=== PATIENT | female | born 1965 | race Caucasian/White ===

== ENCOUNTER → 2019-01-06 15:00 | Outpatient (CLI) | payer OTHER, SELFPAY ==
--- NOTE | 2019-01-06 15:05 | BI_ITS ---
MAMMOGRAPHY - BILATERAL SCREENING REASON FOR EXAM: Female, 53 years old. Routine annual screening examination. PERTINENT HISTORY: Non-contributory. TECHNIQUE: Digital bilateral breast mike (3D mammographic acquisition) in the CC and MLO projections. 2-D mediolateral oblique (MLO) and craniocaudad (CC) views of both breasts were obtained. CAD: Full Field Digital Mammography with Computer Added Detection was performed. COMPARISON: Comparison is made with prior outside examination dated April 15, 2017. FINDINGS: Breast Composition: The breasts are extremely dense, which lowers the sensitivity of mammography. There are no dominant masses or suspicious calcifications. No other significant abnormalities are identified. There has been no significant change since the prior study. BI/SCREEN MAMM (CAD) W/MIKE BILAT IMPRESSION: Stable bilateral screening mammogram. Yearly follow-up mammogram recommended. (A) ASSESSMENT CATEGORY: BIRADS Category 1: Negative. A letter regarding these results will be sent to the patient by the facility within 30 days. Approximately 10% of breast cancers are not detected by mammography. A normal mammogram should not delay biopsy of a clinically suspicious abnormality. [id number] Electronically Signed: Greyson Lewis, at 9:11 EDT , Service support ,
== END ==
PROVIDERS: Family Provider Family Medicine; PCP Family Medicine; Referring Provider Family Medicine; Visit Provider Family Medicine
DX: Z12.31 Encounter for screening mammogram for malignant neoplasm of breast (principal)
CPT/HCPCS: 77063; 77067

== ENCOUNTER → 2020-05-11 13:11 | Outpatient (CLI) | payer OTHER, SELFPAY ==
--- NOTE | 2020-05-11 13:14 | BI_ITS ---
MAMMOGRAPHY - BILATERAL SCREENING REASON FOR EXAM: Female, 54 years old. Routine annual screening examination. PERTINENT HISTORY: Non-contributory. TECHNIQUE: Digital bilateral breast mike (3D mammographic acquisition) in the CC and MLO projections. 2-D mediolateral oblique (MLO) and craniocaudad (CC) views of both breasts were obtained. CAD: Full Field Digital Mammography with Computer Added Detection was performed. COMPARISON: Comparison is made with prior study dated 01/06/2019. FINDINGS: Breast Composition: The breasts are extremely dense, which lowers the sensitivity of mammography. There are no dominant masses or suspicious calcifications. No other significant abnormalities are identified. There has been no significant change since the prior study. BI/SCREEN MAMM (CAD) W/MIKE BILAT IMPRESSION: Stable bilateral screening mammogram. Yearly follow-up mammogram recommended. (A) ASSESSMENT CATEGORY: BIRADS Category 1: Negative. A letter regarding these results will be sent to the patient by the facility within 30 days. Approximately 10% of breast cancers are not detected by mammography. A normal mammogram should not delay biopsy of a clinically suspicious abnormality. [id number] Electronically Signed: Greyson Lewis, at 14:23 EST , Service support ,
== END ==
PROVIDERS: PCP Family Medicine; Referring Provider Family Medicine; Visit Provider Family Medicine
DX: Z12.31 Encounter for screening mammogram for malignant neoplasm of breast (principal)
CPT/HCPCS: 77063; 77067

== ENCOUNTER 2023-03-11 09:01 | Day surgery (SDC) | payer OTHER, SELFPAY ==
[2023-03-11] VITALS (9 sets, daily range): BP systolic 85–119; BP diastolic 51–80; PULSE 71–98; RESP 16–20; TEMP 36.2–37.3; O2SAT 93–100; BMI 27.6
--- NOTE | 2023-03-11 | COLBX_PTH ---
PATIENT: MARIN ESQUIVEL LOC: EN U#:[id number] AGE/SX: 57/F ROOM: RE03/11/[address]: Dr. Zandra Toledo MD : 1965 BED: DIS: 03/11/2023 SPEC #: [id number] RECD: 03/11/23 10:03 STATUS: BRIGETTE BHARATH #: [id number] SUNDAR: 03/11/23 00:[address]: Zandra Toledo DEPT: SURGICAL PATHOLOGY RECD BY: Shaye Alejo ENTERED: 03/11/23 10:48 SP TYPE: COLON BX OTHR DR: EVANS Coe Tissues: A - Rectum, NOS B - Rectum, NOS C - Rectum, NOS Procedures: Frozen Section (charge) Surgery Specimen Level IV HEADER OPERATION: Colonoscopy with biopsy PRE-OP DIAGNOSIS: Rectal bleeding, inguinal lymphadenopathy TISSUE SUBMITTED: A - Rectal biopsy, frozen section, B - Rectal biopsy, C - Transverse polyp biopsy FROZEN SECTION DIAGNOSIS A. Rectal bleeding: Non-small cell carcinoma, favor squamous cell carcinoma. SJ:austen 03/11/2023 Case has been reviewed in consultation with Dr. Do who concurs with the above diagnosis. IDC:AM MICROSCOPIC DIAGNOSIS A. Rectal biopsy: Nonkeratinizing squamous cell carcinoma. B. Rectal biopsy: Nonkeratinizing squamous cell carcinoma. See comment. C. Transverse colon polyp, biopsy: A fragment of colonic mucosa, no pathologic diagnosis. SJ:austen 03/12/2023 COMMENT B. Immunohistochemistry ([id number]) supports the above diagnosis. Case has been reviewed in consultation with Dr. Do who concurs with the above diagnosis. IDC:AM MICROSCOPIC DESCRIPTION Slides are reviewed. GROSS DESCRIPTION A - Received fresh for frozen section diagnosis labeled with the patient's name is a specimen designated rectal biopsy. The specimen consists of a piece of leal soft tissue measuring 0.3 x 0.2 x 0.1 cm. This piece is submitted for frozen section diagnosis. Also present in the container are two minute fragments of leal soft tissue each measuring 0.1 cm in greatest dimension. The entire specimen is submitted in one cassette including the piece submitted for frozen section diagnosis in one cassette. B - Received in fixative is one container labeled with the patient's name and designated rectal biopsy. The specimen consists of multiple irregular fragments of light leal soft tissue that in aggregate measure 1.5 x 0.5 x 0.1 cm. The specimen is totally submitted in one cassette. C - Received in fixative is one container labeled with the patient's name and designated transverse polyp biopsy. The specimen consists of one irregular fragment of light leal soft tissue that measures 0.4 x 0.2 x 0.1 cm. The specimen is totally submitted in one cassette. / SJ:austen 03/11/2023 TC:0 CPT: 62869 x3, 23236
--- NOTE | 2023-03-11 | IMM_PTH ---
PATIENT: MARIN ESQUIVEL LOC: EN U#:[id number] AGE/SX: 57/F ROOM: RE03/11/[address]: Dr. Zandra Toledo MD : 1965 BED: DIS: 03/11/2023 SPEC #: [id number] RECD: 03/12/23 11:41 STATUS: BRIGETTE REQ #: [id number] SUNDAR: 03/11/23 00:[address]: Zandra Toledo DEPT: IMMUNOHISTOCHEMISTRY RECD BY: Shaye Alejo ENTERED: 03/12/23 11:43 SP TYPE: IMMUNO OTHR DR: EVANS Coe Tissues: B - Rectum, NOS Procedures: MSH2 (add) MLH-1 (add) MSH6 (add) Anti-PMS2 (add) CK20 (add) CK5-6 (add) CK7 (add) CK8 (add) KI-67 (add) P16 (add) P53 (add) Pankeratin (initial) P40 (add) PHYSICIAN & [address] [address] SPECIMEN INFORMATION: Tissue Source: B - Rectal biopsy Clinical Info: Rectal bleeding, inguinal lymphadenopathy Specimen Number: [id number] CPT code: 71364, 37108 x12 METHODOLOGY: Deparaffinized sections of prefer/formalin-fixed tissue or PAP/DQ stained slides are incubated with monoclonal/polyclonal antibodies/oligonucleotide probes. Localization is made via biotin free immunoperoxidase method. Appropriate controls are performed and reacted as expected. Results on target cell population are indicated in the following table: RESULTS: ANTIBODY / CLONE RESULT Block B AE1-3 (AE1/AE3/PCK26) positive CK7 (OV-TL12/30) positive, focal CK8 ([id number]) negative CK20 (KS20.8) negative CK5-6 (D5 & 1684) positive P40 (BC28) positive MLH-1 (M1) positive MSH2 (25D12) positive MSH6 (44) positive PMS2 (QJX6057) positive P16 (E6H4) positive, block staining Ki-67 (30-9) positive, high P53 (DO-7) negative, null pattern These tests were developed and their performance characteristics determined by [facility]. They may not have been cleared or approved by the U.S. Food and Drug Administration. The FDA has determined that such clearance or approval is not necessary. The above immunohistochemical/dualISH markers are ordered and reviewed by the Pathologist. INTERPRETATION: B. Rectal biopsy: Squamous cell carcinoma. Result of Microsatellite Instability Study: Negative (no loss of mismatch protein; no microsatellite instability detected). SJ:austen 03/13/2023
--- NOTE | 2023-03-11 09:12 | H&P.OPEN ---
HPI - General General Date of Service: 03/11/23 HPI Narrative MARIN ESQUIVEL, is a 57 F who presents for diagnostic colonoscopy due to bright red blood per rectum. Patient had a recent ultrasound the right groin on 03/06/2023 noticed at 3 cm lymph node which was palpable at PCPs desk ultrasound was done. Question neoplastic versus infectious per ultrasound report. Patient still has been having blood per rectum with every bowel movement. Patient started on omeprazole about 1 to 2 months ago and symptoms are still controlled medication. office visit 01/24/23 HPI HPI: 57-year-old female presents due to bright red/dark red blood per rectum for about the last 3 months. States more recently occurs more often with every bowel movement which she has about every 1 to 2 days. Patient does have known hemorrhoids and she has not use any medication for her hemorrhoids. Patient states she occasionally had some clots denies any black stools. Patient had a colonoscopy when she was 42 which was negative per patient. Patient did start having some reflux symptoms and discharged on omeprazole 20 mg p.o. daily last week and her symptoms are fairly well controlled with that currently. Patient's paternal grandmother did have colon cancer at age 50 about. Patient does not know a lot about her biological father's medical history. [facility] Medical History (Updated 03/11/23 @ 09:[address] Zandra Toledo MD) Back pain Easy bruising Gastric reflux High cholesterol History of GI bleed Leg cramps Low iron Non-smoker Post-menopausal Psoriasis Rectal bleeding Sinus headache Tinnitus Wears glasses Home Medications omeprazole 10 mg capsule,delayed release 20 mg PO DAILY 01/24/23 [History Last Taken Unknown] amoxicillin 875 mg-potassium clavulanate 125 mg tablet 1 tab PO Q12H 03/08/23 [History Last Taken Unknown] Allergy/AdvReac Type Severity Reaction Status Date / Time Sulfa (Sulfonamide Allergy Intermediate Hives Verified 03/08/23 08:24 Antibiotics) Milk Containing Products AdvReac Intermediate Other Verified 03/08/23 08:25 (Dairy) pseudoephedrine AdvReac Intermediate Other Verified 03/08/23 08:43 [From [facility]] Surgical History (Updated 03/08/23 @ 08:39 by Lacie Avila) History of laparoscopic appendectomy History of tonsillectomy and adenoidectomy Hx of colonoscopy Hx of laparoscopy Hx of left inguinal hernia repair Hx of oophorectomy Social History (Updated 01/24/23 @ 09:29 by Chelsea Knutson) Smoking Status: Never smoker second hand exposure: Yes alcohol intake: never diet: lactose free seatbelt use: always do you feel safe at home: Yes Past Medical/Surgical History Planned Operation Planned Operative Procedure/s: CSCOPE Previous Hospitalizations/Surgeries HX Hospitalizations: No Any Problems With Anesthesia: No You/Your Family Experience Fever (Hyperthermia) With Anes: No Cholinesterase deficiency: No Cardiovascular Hx Hypertension: No Respiratory Hx Sleep Apnea: No Hx Respiratory Tract Infection/Cold (presently): No (ON ANTIBIOTIC FOR SWOLLEN GROIN LYMPH NODE) Do You Snore Loudly (louder than talking or can be heard): Yes Do You Often Feel Tired/ Fatigued/ Sleepy Dring Daytime?: No Has Anyone Observed You Stop Breathing During Sleep?: No Result (for STOP score): Negative Smoking Status: Never smoker Neurological Does patient have nerve stimulator: No Reproduction : No Allergies Sulfa (Sulfonamide Antibiotics) Allergy (Intermediate, Verified 03/08/23 08:24) Hives Milk Containing Products (Dairy) Adverse Reaction (Intermediate, Verified 03/08/23 08:25) Other SINUS HEADACHES,STOMACH PAIN pseudoephedrine [From Sudafed] Adverse Reaction (Intermediate, Verified 03/08/23 08:43) Other TACHYCARDIA Discharge Is Pt Admitted From a Shelter, or a [facility]ci: No After D/C, Where Do you Plan to Go: Return Home Physical Exam Const alert, oriented x3 and no apparent distress HEENT normocephalic and head/scalp atraumatic Lymph Lymphatic Narrative: Tender palpable right groin lymphadenopathy-- largest about 3 cm Resp normal respiratory effort Cardio regular rate GI soft to palpation and non-tender; Negative for non-distended Palpation: Negative for guarding Extremity no clubbing, cyanosis or edema Neuro CN's II-XII intact bilaterally Psych mental status grossly normal Assessment & Plan Assessment/Plan (1) Rectal bleeding: (2) Lymphadenopathy, inguinal: Surgery Risks - Colonoscopy I discussed with the patient the risks of the procedure: Yes Risks Include but are not Limited To: Risks include but are not limited to: Bleeding, perforation requiring further surgery, inability to complete colonoscopy requiring barium enema.
[2023-03-11] MEDS: Lactated Ringers 1,000 ML 15 ML IV (09:31)
--- NOTE | 2023-03-11 10:03 | CT_ITS ---
STUDY: CT CHEST, ABDOMEN T PELVIS WITH CONTRAST REASON FOR EXAM: Female, 57 years old. Rectal mass likely cancer. Bright red blood per rectum. RADIATION DOSAGE (If Supplied By Facility): CTDIvol = ( 15.59 ) mGy, DLP = ( 1233.02 ) mGycm TECHNIQUE: Transaxial imaging was performed following intravenous administration of Oral and amp; IV Gastrografin and amp; 100mL Isovue-300. Individualized dose optimization techniques were used for this CT. COMPARISON: No relevant priors. FINDINGS: CHEST Mild scarring at the lung apices. Mild increased markings at the right lung base suggestive of mild linear scarring. There is no demonstrated pleural abnormality. Normal heart and pericardium. No coronary artery calcification is seen. Normal mediastinum. Normal hilar regions. Normal unenhanced pulmonary arteries. Normal aorta arch and descending thoracic aorta. Normal osseous structures. ABDOMEN There is decreased attenuation of the liver consistent with steatosis. There is a 2.8 cm by 2.7 cm cyst in the dome of the right lobe of the liver anteriorly. There is a small solitary gallstone. Normal spleen. Normal pancreas. Normal bilateral adrenal glands. Normal right kidney. Normal left kidney. There is a small hiatal hernia. Normal small intestine. Large rectal mass more prominent along the right lateral wall and posterior monzon of the rectum. Narrowing of the rectal lumen. Scattered sigmoid diverticula. Small lymph nodes are seen in the perirectal fat. Lymph nodes are also seen in the mesentery along the superior aspect of the sigmoid colon. Mucosal thickening of the sigmoid colon. The patient is status post appendectomy. There is scattered atherosclerotic calcification of the abdominal aorta, without a demonstrated aneurysm. Normal inferior vena cava. Normal retroperitoneum. Normal abdominal wall. Normal osseous structures. PELVIS Normal urinary bladder. Normal visualized pelvic arteries. CT/CT Chest, Abd, Pel w/Contrast IMPRESSION: Large rectal mass with narrowing of the rectal lumen as described. Lymph nodes are seen within the perirectal fat as well as in the mesentery surrounding the sigmoid colon. Fatty infiltration of the liver. Cyst is seen in the right lobe of the liver. Small solitary gallstone. Electronically Signed: Greyson Lewis MD at 14:20 EDT ,
--- NOTE | 2023-03-11 10:11 | OP.CCLET_ITS ---
03/11/2023 Brenna Jonathon Re : Colonoscopy procedure for Tamar Holt This procedure was performed on Saturday, March 11, 2023. My impressions and recommendations are as follows: Impressions : - Rectal mass 0 to 1 cm from the anal verge. - One less than 5 mm polyp in the transverse colon, removed with a cold biopsy forceps. Resected and retrieved. - Likely malignant partially obstructing tumor in the rectum. Biopsied. - The examination was otherwise normal. Recommendations : - Discharge patient to home. - Resume previous diet. - Continue present medications. - Await pathology results. - Perform a CT scan (computed tomography) of chest with contrast, abdomen with contrast and pelvis with contrast today. - Check liver enzymes (AST, ALT, alkaline phosphatase, bilirubin), hemogram with white blood cell count and platelets, electrolyte panel and CEA today. - Repeat colonoscopy is recommended. The colonoscopy date will be determined after pathology results from today's exam become available for review. My findings are described in the full procedure note, which is enclosed. If I can be of further assistance, please feel free to contact me at Doctor phone number(s): , Work: . Sincerely, MD Zandra Skaggs MD 03/11/2023 10:10:51 AM This report has been signed electronically.
--- NOTE | 2023-03-11 10:11 | OP.COLON_ITS ---
Patient Name: Tamar Lizama Procedure Date: 03/11/2023 9:35 AM Date of : 1965 Age: 57 Procedure: Colonoscopy Indications: Rectal bleeding Providers: Zandra Toledo MD Medicines: Monitored Anesthesia Care Patient Profile: Last Colonoscopy: more than 10 years ago. Complications: No immediate complications. Procedure: Pre-Anesthesia Assessment: - Prior to the procedure, a History and Physical was performed, and patient medications and allergies were reviewed. The patient's tolerance of previous anesthesia was also reviewed. The risks and benefits of the procedure and the sedation options and risks were discussed with the patient. All questions were answered, and informed consent was obtained. Prior Anticoagulants: The patient has taken no anticoagulant or antiplatelet agents. ASA Grade Assessment: Per anesthesia. After reviewing the risks and benefits, the patient was deemed in satisfactory condition to undergo the procedure. After I obtained informed consent, the scope was passed under direct vision. Throughout the procedure, the patient's blood pressure, pulse, and oxygen saturations were monitored continuously. The pediatric colonoscope was introduced through the anus and advanced to the cecum, identified by the appendiceal orifice, ileocecal valve and palpation. The colonoscopy was performed without difficulty. The patient tolerated the procedure well. The quality of the bowel preparation was good. Scope In: 9:41:33 AM Scope Withdrawal Time 0 hours 13 minutes 8 seconds Scope Out: 10:00:26 AM Total Procedure Duration Time 0 hours 18 minutes 53 seconds Findings: The digital rectal exam revealed a 5 in length & about 3/4 circumference at anal verge firm rectal mass palpated 0 to 1 cm from the anal verge. The mass was non-circumferential and located predominantly at the anterior bowel wall. A less than 5 mm polyp was found in the transverse colon. The polyp was sessile. The polyp was removed with a cold biopsy forceps. Resection and retrieval were complete. A fungating partially obstructing medium-sized mass was found in the rectum. The mass was partially circumferential (involving two-thirds of the lumen circumference). The mass measured five cm in length. After biopsy-friable tissue. Biopsies were taken with a cold forceps for histology. The exam was otherwise without abnormality. Impression: - Rectal mass 0 to 1 cm from the anal verge. - One less than 5 mm polyp in the transverse colon, removed with a cold biopsy forceps. Resected and retrieved. - Likely malignant partially obstructing tumor in the rectum. Biopsied. - The examination was otherwise normal. Recommendation: - Discharge patient to home. - Resume previous diet. - Continue present medications. - Await pathology results. - Perform a CT scan (computed tomography) of chest with contrast, abdomen with contrast and pelvis with contrast today. - Check liver enzymes (AST, ALT, alkaline phosphatase, bilirubin), hemogram with white blood cell count and platelets, electrolyte panel and CEA today. - Repeat colonoscopy is recommended. The colonoscopy date will be determined after pathology results from today's exam become available for review. Procedure Code(s): --- Professional --- 92819, Colonoscopy, flexible; with biopsy, single or multiple Diagnosis Code(s): --- Professional --- K62.89, Other specified diseases of anus and rectum D12.3, Benign neoplasm of transverse colon (hepatic flexure or splenic flexure) D49.0, Neoplasm of unspecified behavior of digestive system K56.690, Other partial intestinal obstruction K62.5, Hemorrhage of anus and rectum CPT copyright 2021 [employer]. All rights reserved. The codes documented in this report are preliminary and upon barman review may be revised to meet current compliance requirements. MD Zandra Skaggs MD 03/11/2023 10:10:51 AM This report has been signed electronically. Number of Addenda: 0 Note Initiated On: 03/11/2023 9:35 AM
--- NOTE | 2023-03-11 11:18 | PCM.PN.BLA ---
Progress Note Patient colonoscopy showed anal/rectal mass. Frozen biopsied favors squamous cell. getting labs including a CBC, BMP, liver function, CEA as well as a CT chest abdomen pelvis with p.o. and IV contrast today. Did discuss with patient we will let patient know when CTs results are in patient is aware of the frozen biopsy diagnosis of squamous cell/anus/rectal cancer. Did discuss with patient that her right groin node is very likely positive as there is now a lot of reasons to have a 3 cm right groin node?we will likely be getting a biopsy of this in the future. Discussed with patient to let us know when we do follow-up if there is someone in particular she would like to see for oncology.
[2023-03-11 11:22] LABS: Absolute Lymphocyte Count 2.27 X10^3/uL (0.83-4.51); Absolute Neutrophil Count 3.5 X10^3/uL (2.0-7.7); Basophil# 0.07 X10^3/uL; Basophil% 1.1 % (0-1); Eosinophil# 0.16 X10^3/uL; Eosinophils% 2.4 % (0-5); Hematocrit 34.2 % (37-47); Hemoglobin 10.9 g/dL (12.0-15.0); Lymphocyte # 2.27 X10^3/ul (0.83-4.51); Lymphocyte % 34.7 % (19-41); Mean Corp Hgb Conc 31.9 g/dL (32-36); Mean Corpuscular Hgb 27.2 pg (27.0-32.0); Mean Corpuscular Volume 85.3 fL (81-99); Monocyte% 7.6 % (0-10); NRBC Flagged by Analyzer 0 % (0-5); Neutrophil # 3.52 X10^3/uL (2.7-7.7); Neutrophil % 53.9 % (47-70); Platelet Count 277 K/mm3 (150-450); RBC Distribution Width CV 12.3 % (11.6-14.6); RBC Distribution Width SD 38.6 fl (35.1-43.9); Red Blood Count 4.01 M/mm3 (4.2-5.4); White Blood Count 6.5 K/mm3 (4.4-11.0)
[2023-03-11 11:39] LABS: AST(SGOT) 24 U/L (15-37); Alanine Aminotransfer ALT/SGPT 19 U/L (13-56); Albumin, Serum 3.4 g/dL (3.2-5.0); Alkaline Phosphatase 72 U/L (45-117); Anion Gap 4 (5-15); BUN 8 mg/dL (7-18); BUN/Creat Ratio 10.7 RATIO (10-20); Bilirubin, Direct 0.12 mg/dL (0.00-0.30); Chloride 109 mmol/L (98-107); Creatinine, Serum 0.75 mg/dL (0.55-1.02); EST Glomerular Filtration Rate 86 mL/min (>60); Est Glom Filt Rate - Afr Amer 104 mL/min (>60); Estimated Creatinine Clearance 76.26 ml/min; Globulin 3.2 g/dL (2.2-4.2); Glucose 99 mg/dL (74-106); Potassium 3.8 mmol/L (3.5-5.1); Protein, Total 6.6 g/dL (6.4-8.2); Sodium Level 142 mmol/L (136-145)
[2023-03-12 08:10] LABS: Carcinoembryonic Antigen 10.5 ng/mL (0.0-4.7)
== END 2023-03-11 13:55 | disposition home or self-care (01) ==
LOC: EN 09:04 → AC 09:07
PROVIDERS: PCP Physician Assistant; Referring Provider Physician Assistant; Visit Provider Surgery
PROC: 0DJD8ZZ Inspection of Lower Intestinal Tract, Via Natural or Artificial Opening Endoscopic (ICD-10-PCS; CPT 45378; principal; 2023-03-11 09:55)
DX: C20 Malignant neoplasm of rectum (principal); R59.0 Localized enlarged lymph nodes; K63.5 Polyp of colon; K21.9 Gastro-esophageal reflux disease without esophagitis; Z80.0 Family history of malignant neoplasm of digestive organs; Z79.899 Other long term (current) drug therapy
CPT/HCPCS: 45380; 71260; 74177; 80048; 80076; 82378; 85025; 88305; 88331; 88341; 88342; J7120; Q9967; A4216; J2405